=== PATIENT | male | born 1970 | race Caucasian/White ===

== ENCOUNTER → 2018-04-19 14:27 | Outpatient (CLI) | payer OTHER, SELFPAY ==
[2018-04-19 15:53] LABS: Add Manual Diff / Slide Review NO; Basophils Percent Auto 0.3 % (0-2); Hematocrit 49.4 % (41-53); Hemoglobin 17.5 g/dL (13.5-17.5); Mean Corpuscular HGB Conc 35.4 % (30-36); Mean Corpuscular Hemoglobin 31.4 PG (26-34); Mean Corpuscular Volume 88.5 fL (80-100); Monocytes Percent Auto 5.8 % (3-14); Neutrophils Absolute Auto 6400 /uL (3000-5900); Neutrophils Percent Auto 74.9 % (50-75); Platelet Count 158 X10^3/uL (150-400); Red Blood Cell Count 5.59 X10^6/uL (4.5-5.9); Red Cell Distribution Width 12.3 % (11.6-14.8); White Blood Cell Count 8.5 X10^3/uL (4.5-11.0)
[2018-04-19 16:09] LABS: Alanine Aminotransferase 56 IU/L (21-72); Albumin 4.5 g/dL (3.5-5.0); Albumin Globulin Ratio 1.6 (1.0-2.8); Alkaline Phosphatase 52 U/L (38-126); Aspartate Aminotransferase 33 IU/L (17-59); BUN Creatinine Ratio 14.4 (6-22); Bilirubin Total 0.9 mg/dL (0.2-1.3); Blood Urea Nitrogen 13 mg/dL (9-20); Calcium 9.5 mg/dL (8.4-10.2); Carbon Dioxide 31 mmol/L (22-32); Chloride 100 mmol/L (98-107); Cholesterol 221 mg/dL (140-199); Estimated Glomerular Filt Rate > 60.0 mL/min (>60); Globulin 2.8 g/dL (1.7-4.1); Glucose 85 mg/dL (70-100); HDL Cholesterol 42 mg/dL (40-60); HEMOLYSIS < 15 (0-50); LDL Cholesterol Calculated 156 mg/dL (<100); Potassium 4.4 mmol/L (3.4-5.1); Sodium 141 mmol/L (137-145); Total Protein 7.3 g/dL (6.3-8.2); Triglycerides 117 mg/dL (35-150)
[2018-04-19 16:39] LABS: Prostate Specific Antigen Scrn 1.26 ng/mL (0.1-4.0)
[2018-04-19 18:10] LABS: TSH w/ Reflex to FT4 0.56 uIU/mL (0.47-4.68)
== END ==
PROVIDERS: Family Provider Family Medicine; PCP Family Medicine; Visit Provider Family Medicine
DX: E78.2 Mixed hyperlipidemia (principal); Z12.5 Encounter for screening for malignant neoplasm of prostate
CPT/HCPCS: 36415; 80053; 80061; 84443; 85025; G0103

== ENCOUNTER → 2019-08-01 07:48 | Outpatient (CLI) | payer OTHER, SELFPAY ==
[2019-08-01 09:15] LABS: Add Manual Diff / Slide Review NO; Basophils Absolute Auto 0 /uL (0-100); Basophils Percent Auto 0.5 % (0-2); Eosinophils Absolute Auto 100 /uL (0-450); Eosinophils Percent Auto 1.5 % (2-4); Hematocrit 49.2 % (41-53); Hemoglobin 17.3 g/dL (13.5-17.5); Lymphocytes Absolute Auto 1400 /uL (1100-4500); Lymphocytes Percent Auto 21.4 % (25-40); Mean Corpuscular HGB Conc 35.1 % (30-36); Mean Corpuscular Hemoglobin 30.9 PG (26-34); Mean Corpuscular Volume 87.9 fL (80-100); Monocytes Absolute Auto 400 /uL (0-900); Monocytes Percent Auto 6.4 % (3-14); Neutrophils Absolute Auto 4500 /uL (1500-7000); Neutrophils Percent Auto 70.2 % (50-75); Platelet Count 173 X10^3/uL (150-400); Red Blood Cell Count 5.59 X10^6/uL (4.5-5.9); Red Cell Distribution Width 12.3 % (11.6-14.8); White Blood Cell Count 6.4 X10^3/uL (4.5-11.0)
[2019-08-01 09:19] LABS: Alanine Aminotransferase 32 IU/L (21-72); Albumin 4.6 g/dL (3.5-5.0); Albumin Globulin Ratio 1.6 (1.0-2.8); Alkaline Phosphatase 50 U/L (38-126); Aspartate Aminotransferase 29 IU/L (17-59); Bilirubin Total 0.7 mg/dL (0.2-1.3); Blood Urea Nitrogen 13 mg/dL (9-20); Calcium 9.3 mg/dL (8.4-10.2); Carbon Dioxide 28 mmol/L (22-32); Chloride 101 mmol/L (98-107); Cholesterol 214 mg/dL (140-199); Estimated Glomerular Filt Rate > 60.0 mL/min (>60); Globulin 2.8 g/dL (1.7-4.1); Glucose 103 mg/dL (70-100); HDL Cholesterol 44 mg/dL (40-60); HEMOLYSIS 17 (0-50); LDL Cholesterol Calculated 141 mg/dL (<100); Potassium 3.9 mmol/L (3.4-5.1); Sodium 139 mmol/L (137-145); Total Protein 7.4 g/dL (6.3-8.2); Triglycerides 147 mg/dL (35-150)
[2019-08-01 09:50] LABS: TSH w/ Reflex to FT4 0.74 uIU/mL (0.47-4.68)
== END ==
PROVIDERS: Family Provider Family Medicine; PCP Family Medicine; Visit Provider Nurse Practitioner
DX: E78.2 Mixed hyperlipidemia (principal); Z13.1 Encounter for screening for diabetes mellitus; Z13.29 Encounter for screening for other suspected endocrine disorder; Z13.6 Encounter for screening for cardiovascular disorders
CPT/HCPCS: 36415; 80053; 80061; 84443; 85025

== ENCOUNTER → 2019-08-02 12:50 | Outpatient (CLI) | payer OTHER, SELFPAY ==
[2019-08-02 13:56] LABS: Free T3, Triiodothyronine Free 4.46 pg/mL (2.77-5.27); Free T4, Direct Thyroxine 1.24 ng/dL (0.78-2.19)
== END ==
PROVIDERS: Family Provider Family Medicine; PCP Family Medicine; Visit Provider Nurse Practitioner
DX: E78.5 Hyperlipidemia, unspecified (principal); I10 Essential (primary) hypertension
CPT/HCPCS: 84439; 84481

== ENCOUNTER 2021-07-14 11:28 | Emergency (ER) | payer OTHER, SELFPAY ==
[2021-07-14 11:36] VITALS: BP 134/76; PULSE 83; PULSE 90; RESP 16; TEMP 36.2; O2SAT 100; O2SAT 98; BMI 20.9
[2021-07-14 12:00] VITALS: BP 134/77; PULSE 75; O2SAT 100
--- NOTE | 2021-07-14 12:17 | ED.BACK ---
HPI - Back Pain/Injury <Chris Garcia PA-C - Last Filed: 07/14/21 14:05> General Chief Complaint: Back Pain/Injury Stated Complaint: Low back pain from injury x1 day Time Seen by Provider: 07/14/21 11:35 Source: patient History of Present Illness HPI Narrative: 51-year-old male with past medical history mixed hyperlipidemia, ADHD, anxiety, sleep disorder presents to the ED with 2 days of lower back pain. Patient states that he was rolling on some grass in his yard yesterday, when he experienced sudden lower back pain. Pain is exacerbated by movement. Patient endorses being able to walk, however walking is limited by pain. Patient denies any other injuries, trauma. Patient denies numbness, tingling, weakness. Patient denies prior episodes of lower back pain. Patient denies drug use. Endorses tobacco use. Denies fever, chills, chest pain, shortness of breath, nausea, vomiting, abdominal pain, dysuria, urinary hesitancy, loss of bladder or bowel function/control, saddle paresthesia. Patient took Aleve last night, this morning with no relief. Related Data Previous Rx's Medication Instructions Recorded trazodone 50 mg tablet 50 mg PO HS #90 tab 08/10/20 ciprofloxacin 0.3 %-dexamethasone 4 drp OTIC (EAR) BID #7.5 ml 05/13/21 0.1 % ear drops,suspension (Ciprodex) dextroamphetamine-amphetamine ER See Rx Instructions PO QDAY #30 tab 07/05/21 10 mg 24hr capsule,extend release (Adderall XR) temazepam 15 mg capsule See Rx Instructions .ROUTE 07/05/21 .COMPLEX #30 capsule cyclobenzaprine 10 mg tablet 10 mg PO TID PRN 3 Days #10 tab 07/14/21 Allergies Allergy/AdvReac Type Severity Reaction Status Date / Time ciprofloxacin [From CIPRO] Allergy Mild GI DISTRESS Verified 07/14/21 11:38 Review of Systems <Chris Garcia PA-C - Last Filed: 07/14/21 14:05> Constitutional Constitutional: Denies chills, Denies fatigue, Denies fever(s), Denies frequent falls, Denies lethargy and Denies weakness Eyes Eyes: Denies change in vision, Denies eye discharge, Denies irritation and Denies loss of vision ENT Ears, Nose, Mouth, and Throat: Denies change in voice, Denies dizziness, Denies neck pain, Denies sore throat and Denies throat swelling Cardiovascular Cardiovascular: Denies chest pain, Denies irregular heart rhythm, Denies lightheadedness, Denies palpitations, Denies dyspnea, Denies dyspnea on exertion and Denies orthopnea Respiratory Respiratory: Denies cough, Denies dyspnea, Denies dyspnea on exertion and Denies wheezing Gastrointestinal Gastrointestinal: Denies abdominal pain, Denies change in bowel habits, Denies fecal incontinence, Denies diarrhea, Denies nausea and Denies vomiting Genitourinary Genitourinary: Denies urinary hesitancy and Denies urinary incontinence Musculoskeletal Musculoskeletal: Denies abnormal gait, Reports back pain, Denies muscle weakness, Denies neck pain, Denies numbness, Denies radiating pain into limb, Reports stiffness and Denies tingling Integumentary/Breasts Skin/Breast: Denies pruritus, Denies erythema, Denies rash and Denies wounds Neurologic Neurologic: Denies abnormal gait, Denies behavioral changes, Denies confusion, Denies dizziness, Denies frequent falls, Denies loss of vision, Denies numbness, Denies tingling, Denies paresthesias and Denies weakness Psychiatric Psychiatric: Denies anxiety, Denies behavioral changes, Denies confusion, Denies depression, Denies homicidal ideation and Denies suicidal ideation Endocrine Endocrine: Denies fatigue, Denies flushing and Denies palpitations Hematologic/Lymphatic Hematologic/Lymphatic: Denies easy bruising Allergic/Immunologic Allergic/Immunologic: Denies urticaria, Denies throat swelling and Denies wheezing Patient History <Chris Garcia PA-C - Last Filed: 07/14/21 14:05> Medical History Anxiety (12/29/15) Attention deficit hyperactivity disorder (ADHD) (12/29/15) Excessive cerumen in left ear canal Mixed hyperlipidemia (12/29/15) Otitis externa Sleep disorder (10/27/14) Family History Father Cancer Mother Cancer Social History Smoking Status: Current some day smoker Smoking Status: Current some day smoker Substance Use Type: does not use Exam <Chris Garcia PA-C - Last Filed: 07/14/21 14:05> Initial Vital Signs Initial Vital Signs: Vital Signs Temperature 97.2 F L 07/14/21 11:36 Pulse Rate 83 07/14/21 11:36 Respiratory Rate 16 07/14/21 11:36 Blood Pressure 134/76 07/14/21 11:36 Pulse Oximetry 98 07/14/21 11:36 Const General: cooperative HENMT Head: normocephalic and atraumatic Ears: external ears normal and TM's normal bilaterally Nose: external nose normal and No nasal discharge Face and sinus: sinuses nontender, face symmetric, no sinus tenderness and No dry mucous membranes Mouth: oral mucosae normal and moist mucous membranes Teeth and gingiva: dentition normal Throat: tonsils normal and uvula midline Eyes General: appearance normal, both eyes and all related structures Eyelids: eyelids normal Conjunctivae: conjunctivae normal Sclera: sclerae normal Pupils: PERRL EOM: EOM intact bilaterally Neck Neck: normal visual inspection, trachea midline, No lymphadenopathy, No midline deformity and No JVD Lymphatic: No lymphedema Chest Chest: normal inspection of the chest Resp Effort & Inspection: normal respiratory effort, able to speak in complete sentences, no respiratory distress and no use of accessory muscles Auscultation: clear to auscultation bilaterally, no rales, no rhonchi and no wheezes Cardio Rate: regular rate Rhythm: regular rhythm Heart Sounds: no click, no gallops, no murmurs and no rubs Pulses: normal peripheral pulses GI Inspection: non-distended Palpation: soft, no hepatosplenomegaly, No guarding, No pulsatile mass and No tender Auscultation: normal bowel sounds Back/Spine/Pelvis Back: No CVA tenderness Cervical Spine: cervical ROM normal and No pain with cervical ROM Thoracic/Lumbar Spine: thoracic and lumbar spine normal to inspection Other: No midline tenderness. Straight leg raise limited by pain bilaterally. No bruising. Skin intact. Strength and sensation intact. Skin General: no rashes or lesions noted, No jaundice and No petechiae Neuro General: patient alert, patient oriented x3, gait normal and no focal motor deficits Speech: speech normal Other: PERRLA, CN 1-12 intact. Strength and sensation intact. Neurovascularly intact. Gait normal Extrem General: full ROM, no clubbing, cyanosis or edema, no pedal edema and no calf tenderness Psych Appearance: well kempt Mental Status: mental status grossly normal Attitude: cooperative Thought Content: normal and suicidality Judgment: judgment good <Imelda Aguilar MD - Last Filed: 07/14/21 14:17> Initial Vital Signs Initial Vital Signs: Vital Signs Temperature 97.2 F L 07/14/21 11:36 Pulse Rate 83 07/14/21 11:36 Respiratory Rate 16 07/14/21 11:36 Blood Pressure 134/76 07/14/21 11:36 Pulse Oximetry 98 07/14/21 11:36 Course <Chris Garcia PA-C - Last Filed: 07/14/21 14:05> Course Course Narrative: Patient's symptoms improved with Toradol and Flexeril. Patient was able to sit up, walk normally. Will discharge home with PCP follow-up and ED return precautions. Orders Ordered: Discontinued Medications Cyclobenzaprine HCl (Cyclobenzaprine 10 Mg Tablet) 10 mg PO NOW ONE Stop: 07/14/21 12:17 Last Admin: 07/14/21 12:34 Dose: 10 mg Documented by: MARÍA Ketorolac Tromethamine (Ketorolac 30 Mg/Ml Vial) 15 mg IM NOW ONE Stop: 07/14/21 12:17 Last Admin: 07/14/21 12:30 Dose: 15 mg Documented by: MARÍA Vital Signs Vital signs: Vital Signs - 8 hr 07/14/21 11:36 07/14/21 12:00 07/14/21 12:30 Temperature 97.2 F L Pulse Rate 90 75 83 Respiratory Rate 16 Blood Pressure 134/76 134/77 132/80 Pulse Oximetry 100 100 100 07/14/21 13:00 Temperature Pulse Rate 85 Respiratory Rate Blood Pressure 123/69 Pulse Oximetry 99 <Imelda Aguilar MD - Last Filed: 07/14/21 14:17> Orders Ordered: Discontinued Medications Cyclobenzaprine HCl (Cyclobenzaprine 10 Mg Tablet) 10 mg PO NOW ONE Stop: 07/14/21 12:17 Last Admin: 07/14/21 12:34 Dose: 10 mg Documented by: MARÍA Ketorolac Tromethamine (Ketorolac 30 Mg/Ml Vial) 15 mg IM NOW ONE Stop: 07/14/21 12:17 Last Admin: 07/14/21 12:30 Dose: 15 mg Documented by: MARÍA Vital Signs Vital signs: Vital Signs - 8 hr 07/14/21 11:36 07/14/21 12:00 07/14/21 12:30 Temperature 97.2 F L Pulse Rate 90 75 83 Respiratory Rate 16 Blood Pressure 134/76 134/77 132/80 Pulse Oximetry 100 100 100 07/14/21 13:00 Temperature Pulse Rate 85 Respiratory Rate Blood Pressure 123/69 Pulse Oximetry 99 [facility] - Back Pain/Injury <Chris Garcia PA-C - Last Filed: 07/14/21 14:05> Medical Records Attestation: I reviewed the patient's medical records. [facility] Narrative Medical decision making narrative: 51-year-old male with past medical history mixed hyperlipidemia, ADHD, anxiety, sleep disorder presents to the ED with 2 days of lower back pain. Concern for musculoskeletal sprain/strain. Physical exam reassuring, no signs cauda equina. Patient is systemically well, denies IVDU, unlikely epidural abscess. No indication for imaging given no midline tenderness to palpation. Will give Toradol, Flexeril for symptoms. Will reassess. Likely discharge home. Discharge Plan Departure Patient Disposition: Home Clinical Impression: Back pain Qualifiers: Back pain location: low back pain Chronicity: acute Back pain laterality: midline Sciatica presence: without sciatica Qualified Code(s): M54.5 - Low back pain Instructions: DI for Back Strain or Sprain Activity Restrictions/Additional Instructions: You were seen in the ED today for lower back pain, likely a muscle sprain/strain. Your physical exam was very reassuring, it is unlikely an emergent issue. You can continue to take ibuprofen, Aleve, Tylenol, Flexeril for your symptoms. Return to the ED if your symptoms worsen significantly, you experience bowel or bladder incontinence, tingling, numbness weakness, trouble walking. Follow-up with your PCP. Prescriptions: New cyclobenzaprine 10 mg tablet 10 mg PO TID PRN (Reason: muscle spasm) 3 Days Qty: 10 RF: 0 No Action trazodone 50 mg tablet 50 mg PO HS Qty: 90 RF: 3 dextroamphetamine-amphetamine [Adderall XR] 10 mg capsule,extended release 24hr See Rx Instructions PO QDAY Qty: 30 RF: 0 temazepam 15 mg capsule See Rx Instructions .ROUTE .COMPLEX Qty: 30 RF: 1 ciprofloxacin-dexamethasone [Ciprodex] 0.3-0.1 % drops,suspension 4 drp otic (ear) BID Qty: 7.5 RF: 0 Referrals: Cooper Pereira DO [Primary Care Provider] - <Imelda Aguilar MD - Last Filed: 07/14/21 14:17> Cosign ED Attending Cosignature Attestation: I was immediately available in the department for consultation throughout this patient's visit. I agree with documentation as above. Imelda Aguilar MD
[2021-07-14 12:30] VITALS: BP 132/80; PULSE 83; O2SAT 100
[2021-07-14] MEDS: KETOROLAC 30 MG/ML VIAL 15 MG IM (12:30)
[2021-07-14] MEDS: CYCLOBENZAPRINE 10 MG TABLET PO (12:34)
[2021-07-14 13:00] VITALS: BP 123/69; PULSE 85; O2SAT 99
== END 2021-07-14 13:27 | disposition home or self-care (01) ==
PROVIDERS: Emergency Provider Student in an Organized Health Care Education/Training Program; Family Provider Family Medicine; PCP Family Medicine
DX: M54.5 Low back pain (principal)
CPT/HCPCS: 96372; 99283; J1885

== ENCOUNTER → 2021-07-30 10:10 | Outpatient (CLI) | payer OTHER, SELFPAY ==
--- NOTE | 2021-07-30 10:12 | DI.RAD.S_ITS ---
PROCEDURE: XR HIP W PEL IF DONE OSVALDO MIN 4V INDICATIONS: acute severe low back pain TECHNIQUE: AP pelvis with lateral view(s) of the bilateral hip(s). COMPARISON: None. FINDINGS: Bones: No fractures or dislocations. Pelvic ring appears intact. No suspicious bony lesions. Minimal bilateral periarticular osteophytes are noted at the hip joint. Soft tissues: The visualized bowel gas pattern is normal. No suspicious soft tissue calcifications. IMPRESSION: Early degenerative arthritic change. Dictated by: Shania Iglesias M.D. on 07/30/2021 at 12:29 Approved by: Shania Iglesias M.D. on 07/30/2021 at 12:30
--- NOTE | 2021-07-30 10:12 | DI.RAD.S_ITS ---
PROCEDURE: XR LUMBAR SPINE 2-3V INDICATIONS: ACUTE SEVERE LOW BACK PAIN TECHNIQUE: 2 views of the lumbar spine were acquired. COMPARISON: None. FINDINGS: Bones: 5 [id number] vertebrae are present. There is normal bony alignment. Degenerative endplate changes are noted at L3-4 through L5-S1 levels. No vertebral body compression fractures. No suspicious bony lesions. Soft tissues: Overlying bowel gas pattern is normal. No suspicious soft tissue calcifications. IMPRESSION: Mild degenerative disc disease in mid to lower lumbar spine. No compression fracture or spondylolisthesis. Dictated by: Warner Powell M.D. on 07/30/2021 at 11:33 Approved by: Warner Powell M.D. on 07/30/2021 at 11:33
== END ==
PROVIDERS: Family Provider Family Medicine; PCP Family Medicine; Referring Provider Family Medicine; Visit Provider Family Medicine
DX: M54.41 Lumbago with sciatica, right side (principal); M54.42 Lumbago with sciatica, left side; M54.5 Low back pain; M51.36 Other intervertebral disc degeneration, lumbar region
CPT/HCPCS: 72110; 73522

== ENCOUNTER → 2023-05-16 08:18 | Outpatient (CLI) | payer OTHER, SELFPAY ==
[2023-05-16 09:26] LABS: Add Manual Diff / Slide Review NO; Basophils Absolute Auto 0 /uL (0-100); Basophils Percent Auto 0.4 % (0-2); Eosinophils Absolute Auto 100 /uL (0-450); Eosinophils Percent Auto 0.6 % (2-4); Hematocrit 49.8 % (41-53); Hemoglobin 17.4 g/dL (13.5-17.5); Lymphocytes Absolute Auto 1400 /uL (1100-4500); Lymphocytes Percent Auto 13.7 % (25-40); Mean Corpuscular Hemoglobin 30.5 PG (26-34); Mean Corpuscular Volume 87.3 fL (80-100); Monocytes Absolute Auto 600 /uL (0-900); Monocytes Percent Auto 5.5 % (3-14); Neutrophils Absolute Auto 8100 /uL (1500-7000); Neutrophils Percent Auto 79.8 % (50-75); Platelet Count 186 X10^3/uL (150-400); Red Cell Distribution Width 12.7 % (11.6-14.8); White Blood Cell Count 10.1 X10^3/uL (4.5-11.0)
[2023-05-16 09:39] LABS: Alanine Aminotransferase 27 IU/L (<50); Albumin 4.3 g/dL (3.5-5.0); Albumin Globulin Ratio 1.8 (1.0-2.8); Alkaline Phosphatase 67 U/L (38-126); Aspartate Aminotransferase 24 IU/L (17-59); BUN Creatinine Ratio 12.6 (6-22); Bilirubin Total 0.8 mg/dL (0.2-1.3); Blood Urea Nitrogen 13 mg/dL (9-20); Calcium 8.8 mg/dL (8.4-10.2); Carbon Dioxide 28 mmol/L (22-32); Chloride 101 mmol/L (98-107); Cholesterol 253 mg/dL (140-199); Estimated Glomerular Filt Rate > 60 mL/min (>60); Globulin 2.4 g/dL (1.7-4.1); Glucose 106 mg/dL (70-100); HDL Cholesterol 43 mg/dL (40-60); HEMOLYSIS < 15 (0-50); LDL Cholesterol Calculated 179 mg/dL (<100); Potassium 4.3 mmol/L (3.4-5.1); Sodium 136 mmol/L (137-145); Total Protein 6.7 g/dL (6.3-8.2); Triglycerides 156 mg/dL (35-150)
[2023-05-16 10:06] LABS: Prostate Specific Antigen Scrn 1.28 ng/mL (0.1-4.0)
== END ==
PROVIDERS: Family Provider Family Medicine; PCP Family Medicine; Referring Provider Family Medicine; Visit Provider Family Medicine
DX: E78.2 Mixed hyperlipidemia (principal); F41.9 Anxiety disorder, unspecified; N52.9 Male erectile dysfunction, unspecified; Z12.5 Encounter for screening for malignant neoplasm of prostate
CPT/HCPCS: 36415; 80053; 80061; 85025; G0103

== ENCOUNTER 2025-07-15 06:47 | Day surgery (SDC) | payer OTHER, SELFPAY ==
--- NOTE | 2025-07-15 | PATH_ITS ---
[facility] Accession Number: [id number] No. of containers..04 Tissue . 01 Material submitted: . PART A: colon - COLON, ASCENDING/CECAL POLYPS X3 PART B: colon - SIGMOID POLYP X1 PART C: colon - SIGMOID POLYPS X4 PART D: rectum - RECTAL POLYPS X2 . 01 Diagnosis: A. CECUM AND ASCENDING COLON, POLYPS: Tubular adenomas (3 polyps removed). . B. SIGMOID COL0N POLYP: Serrated lesion, favor sessile serrated adenoma. . C. SIGMOID COLON POLYPS: Hyperplastic polyps (4 polyps removed). . D. RECTAL POLYPS: Hyperplastic polyp x2. [facility] 07/24/2025 1308 Local . 01 Electronically signed: . Brandon Bruce MD, PhD, Pathologist NPI- [id number] . 01 Gross description: . Received are four formalin-filled containers each labeled with the patient's name. . A. In a container labeled 1. Ascending colon/cecal polyp x3, are four fragments of springer, soft tissue which range in size from 0.3 x 0.3 x 0.2 cm to 0.7 x 0.4 x 0.4 cm. All fragments are totally submitted in cassette A1. B. In a container labeled 2. Sigmoid polyp x1, is one fragment of springer, soft tissue which measures 0.5 0.4 x 0.6 cm. The specimen is bisected, and totally submitted in cassette B1. C. In a container labeled 3. Sigmoid polyp x4, are multiple fragments of springer, soft tissue which range in size from less than 0.1 cm to 0.3 x 0.3 x 0.2 cm. All fragments are totally submitted in cassette C1. D. In a container labeled 4. Rectal polyp x2, are two fragments of springer, soft tissue which range in size from 0.1 x 0.1 x 0.1 cm to 0.2 x 0.2 x 0.2 cm. All fragments are totally submitted in cassette D1. (DC:[id number]) /BEBO 07/22/2025 0902 Local . 01 Pathologist provided ICD-10: D12.6, K62.1 . 01 CPT . 297243, 472953, 713975, [id number] Specimen Comment: A courtesy copy of this report has been sent to [facility] Pathology Performed at: [address] [facility] [address] [address], [place], [place] [id number] MD Reed Lowe MD Phone: [phone]
--- NOTE | 2025-07-15 06:33 | PM.HP.IH.1 ---
History of Present Illness History of Present Illness Date Patient Seen: 07/15/25 Time Patient Seen: 06:33 Chief complaint: [facility] [place]arrative: 55yo M, presents for screening colonoscopy. H/O ED visit for colitis. FH negative for colon cancer. Smoker. First screening exam. [facility] Medical History (Updated 07/15/25 @ 06:34 by Spencer Eagle MD) Colitis Tobacco abuse Nonspecific colitis Medication side effect Erectile dysfunction Acute right-sided low back pain with bilateral sciatica Excessive cerumen in left ear canal Otitis externa Mixed hyperlipidemia (12/29/15) Attention deficit hyperactivity disorder (ADHD) (12/29/15) Anxiety (12/29/15) Sleep disorder (10/27/14) Family History Father Cancer Mother Cancer Meds Home Medications and Allergies Home Medications ?Medication ?Instructions ?Recorded ?Confirmed ?Type prednisone 10 mg tablet 10 mg PO DIRECTED #30 tabs 05/08/25 05/19/25 Rx sodium,potassium,mag sulfates 17.5 See Rx Instructions PO .COMPLEX 05/19/25 Rx gram-3.13 gram-1.6 gram oral soln #354 mL (Suprep Bowel Prep Kit) tadalafil 5 mg tablet 5 mg PO DAILY PRN sexual activity 05/30/25 Rx #30 tabs dextroamphetamine-amphetamine ER See Rx Instructions .Route 07/01/25 Rx 10 mg 24hr capsule,extend release .COMPLEX #30 caps trazodone 50 mg tablet 50 mg PO QPM #90 tabs 07/02/25 Rx Allergies Allergy/AdvReac Type Severity Reaction Status Date / Time ciprofloxacin (From CIPRO) Allergy Mild GI DISTRESS Verified 05/19/25 09:17 imiquimod AdvReac Severe Rash Verified 05/19/25 09:17 Exam Const General: comfortable Orientation: alert and oriented x3 Resp Effort & Inspection: normal respiratory effort and able to speak in complete sentences Cardio Rate: regular rate GI Palpation: soft (NT) Extrem General: no pedal edema and no calf tenderness Assessment & Plan Assessment and plan (1) Encounter for screening colonoscopy: Status: Acute Plan Plan screening colonoscopy, possible biopsy. The risks, benefits and options regarding the procedure were explained to the patient in detail. Risk discussion included but not limited to: bleeding, perforation, missed lesion, unable to reach cecum. The patient was encouraged to ask questions and they were answered to their satisfaction. The patient understands and is agreeable to proceed. Time-Based Coding :: [TOTAL MINUTES] spent with patient and on the chart (including review of chart, obtaining history, exam, reviewing outside data, placing orders, documenting exam and treatment plan, and counseling patient) on [DATE]. [facility] Mental Health Nurse Document charge(s): Yes Charge Codes Inpatient/observation care including admit and discharge same day: [id number]
[2025-07-15 07:15] VITALS: BP 144/83; PULSE 108; RESP 16; TEMP 36.2; O2SAT 99
[2025-07-15] MEDS: LACTATED RINGERS 1,000 ML 42 ML IV (07:21)
--- NOTE | 2025-07-15 07:40 | P.OP.COLON_ITS ---
Operative Date/Time/Diagnoses Date of procedure: 07/15/25 Time of procedure: 08:28 Pre-op diagnosis: H/O colitis, first screening colonoscopy Post-op diagnosis: other (Polyps scattered throughout colon, 10 removed) Procedure & Clinicians Study performed: Colonoscopy with polypectomy Same procedure(s) as scheduled: Yes Indications: 55yo M, h/o colitis, first screening colonoscopy. Surgeon: Spencer Eagle Anesthesia Type: MAC +/- Procedure Notes SCOAP/Timeout: Performed Procedure in detail: Colonoscopy Patient placed in left lateral recumbent position. Time out was performed. Procedural sedation was administered by anesthesia. Examination began with a thorough inspection of the perianal area. There was no evidence of fissures, fistulae, external hemorrhoids or cutaneous malignancy. The colonoscope was then placed into the rectum and the lumen was insufflated with carbon dioxide. The scope was carefully advanced forward. Ultimately the cecum was intubated and confirmed by identification of the ileocecal valve, the appendiceal orifice and the confluence of the taenia. The scope was then slowly withdrawn examining the colon thoroughly in all directions. In the rectum, retroflexion of the scope was performed for inspection of the distal rectum and anal canal. ?Significant colonoscopy findings: ?1. Quality of the preparation-good, Bird In Hand 2-3, improved with irrigation/suction ?2. Polyps x 10 scattered throughout colon including: cecum/ascending x 3, sigmoid x 5, rectal x 2. Most of these were sessile 3-5mm benign appearing polyps. One dominant sigmoid polyp was 1cm, pedunculated with adenomatous appearance. Two of the rectal polyps were 5mm sessile adenomatous appearing p olyps. All polyps removed by cold snare and retrieved for pathology. Plan next screening in 3 years given number and adenomatous appearance of polyps. 3. Few sigmoid diverticulae Scope withdrawal time: 27 minutes Findings: polyp(s) Specimen(s): other (Polyps) Complications: none Post-procedure Recommendations: Colonoscopy in 3 years Plan for aftercare: PACU then home Follow up: as needed Disposition: PACU
[2025-07-15 08:26] VITALS: BP 100/59; PULSE 83; RESP 16; TEMP 36.1; O2SAT 97
[2025-07-15 08:30] VITALS: BP 101/56; PULSE 81; RESP 16; O2SAT 97
[2025-07-15 08:35] VITALS: BP 103/58; PULSE 93; RESP 16; O2SAT 98
[2025-07-15 08:43] VITALS: BP 108/68; PULSE 86; RESP 16; O2SAT 98
== END 2025-07-15 09:09 | disposition home or self-care (01) ==
PROVIDERS: PCP Family Medicine; Referring Provider Surgery; Visit Provider Surgery
PROC: 0DJD8ZZ Inspection of Lower Intestinal Tract, Via Natural or Artificial Opening Endoscopic (ICD-10-PCS; CPT 45378; principal; 2025-07-15 07:45)
DX: Z12.11 Encounter for screening for malignant neoplasm of colon (principal); Z87.19 Personal history of other diseases of the digestive system; F17.210 Nicotine dependence, cigarettes, uncomplicated; K57.30 Diverticulosis of large intestine without perforation or abscess without bleeding; D12.0 Benign neoplasm of cecum; D12.2 Benign neoplasm of ascending colon; D12.5 Benign neoplasm of sigmoid colon; K63.5 Polyp of colon; K62.1 Rectal polyp
CPT/HCPCS: 45385; J2704